=== PATIENT | female | born 1965 | race Caucasian/White ===

== ENCOUNTER 2018-04-20 18:01 | Emergency (ER) | payer SELFPAY ==
[~2018-04-20] VITALS: Ht 160 cm; Wt 109.0 kg
[2018-04-20] MEDS ORDERED: SODIUM CHLORIDE 0.9% 1,000 ML IV ONE (18:27)
[2018-04-20] MEDS ORDERED: INSULIN REGULAR (HUMULIN R) 300UNITS/3ML SUBCUT ONE (18:30)
[2018-04-20 19:45] LABS: BASOPHILS % 0.8 % (0.0-2.0); EOSINOPHILS % 1.1 % (0.0-5.0); HEMATOCRIT. 30.3 % (36.0-48.0); LYMPHOCYTES % 40.7 % (20.0-50.0); MEAN CORPUSCULAR HEMOGLOBIN 25.2 pg (28.0-32.0); MEAN CORPUSCULAR VOLUME 76.3 fL (81.0-99.0); MEAN PLATELET VOLUME 7.7 fl (7.4-10.4); MONOCYTES % 3.1 % (2.0-8.0); NEUTROPHILS % 54.3 % (40.0-76.0); PLATELET 471 x1000/uL (130-400); RED BLOOD CELL COUNT 3.97 mill/uL (4.2-5.4); RED CELL DISTRIBUTION WIDTH 16.1 % (11.6-14.6)
[2018-04-20 19:51] LABS: CHLORIDE 100 mEq/L (98-107)
[2018-04-20 20:00] LABS: BETA HYDROXYBUTYRATE 0.2 mMol/L (0.0-0.3)
[2018-04-20 20:32] LABS: CLARITY URINE CLEAR (CLEAR); COLOR URINE YELLOW (YELLOW); KETONES URINE NEGATIVE (NEGATIVE); LEUKOCYTE ESTERASE URINE TRACE (NEGATIVE); NITRITE URINE NEGATIVE (NEGATIVE); OCCULT BLOOD URINE NEGATIVE (NEGATIVE); PROTEIN URINE NEGATIVE (NEGATIVE); SPECIFIC GRAVITY URINE 1.009 (1.005-1.030); UROBILINOGEN URINE 0.2 E.U./dL (0.2-1.0)
[2018-04-21 00:26] VITALS: BP 118/70
== END 2018-04-21 00:41 | disposition home or self-care (01) ==
LOC: ER 18:01
DX: E11.65 Type 2 diabetes mellitus with hyperglycemia (principal); E78.00 Pure hypercholesterolemia, unspecified; I10 Essential (primary) hypertension; R79.1 Abnormal coagulation profile
CPT/HCPCS: 36415; 71045; 80053; 81003; 81025; 82010; 82962; 83690; 84484; 85025; 85610; 93005; 96360; 96372; 99285; J1815; J7030

== ENCOUNTER 2021-04-11 18:15 | Emergency (ER) | payer OTHER, MEDICAID ==
[~2021-04-11] VITALS: Ht 160 cm; Wt 91.0 kg
[2021-04-11 20:22] LABS: BASOPHILS % 0.6 % (0.0-2.0); EOSINOPHILS % 1.6 % (0.0-5.0); HEMATOCRIT. 34.4 % (36.0-48.0); HEMOGLOBIN. 11.9 g/dL (12.0-16.0); LYMPHOCYTES % 51.6 % (20.0-50.0); MEAN CORPUSCULAR HEMOGLOBIN 31.3 pg (28.0-32.0); MEAN CORPUSCULAR VOLUME 90.1 fL (81.0-99.0); MEAN PLATELET VOLUME 7.5 fl (7.4-10.4); MONOCYTES % 3.8 % (2.0-8.0); NEUTROPHILS % 42.4 % (40.0-76.0); PLATELET 409 x1000/uL (130-400); RED BLOOD CELL COUNT 3.82 mill/uL (4.2-5.4); RED CELL DISTRIBUTION WIDTH 12.7 % (11.6-14.6)
[2021-04-11 20:25] LABS: CHLORIDE 101 mEq/L (98-107)
[2021-04-11] MEDS ORDERED: SODIUM CHLORIDE 0.9% 1,000 ML IV ONE (21:30)
[2021-04-12 01:11] VITALS: BP 138/82
== END 2021-04-12 02:34 | disposition home or self-care (01) ==
LOC: ER 18:15
DX: I10 Essential (primary) hypertension (principal); E11.65 Type 2 diabetes mellitus with hyperglycemia; E11.9 Type 2 diabetes mellitus without complications; E78.00 Pure hypercholesterolemia, unspecified
CPT/HCPCS: 36415; 70450; 80053; 82010; 82962; 84484; 85025; 93005; 96360; 99285; J7030

== ENCOUNTER 2021-11-03 09:14 | Emergency (ER) | payer MEDICAID, OTHER ==
[~2021-11-03] VITALS: Ht 160 cm; Wt 95.0 kg
[2021-11-03 09:28] VITALS: BP 156/75
[2021-11-03] MEDS ORDERED: OXYM30SP26 BOTHNSTRLS (12:22)
[2021-11-03] MEDS ORDERED: BENZ1LOZ60 MT (12:22)
[2021-11-03] MEDS ORDERED: GUAI-453 MT (12:22)
[2021-11-03] MEDS ORDERED: IBUP-2029 MT (12:22)
== END 2021-11-03 12:38 | disposition home or self-care (01) ==
LOC: ER 10:00
DX: J06.9 Acute upper respiratory infection, unspecified (principal); D64.9 Anemia, unspecified; E11.9 Type 2 diabetes mellitus without complications; E78.00 Pure hypercholesterolemia, unspecified; I10 Essential (primary) hypertension; Z20.822 Contact with and (suspected) exposure to COVID-19
CPT/HCPCS: 71045; 87426; 87804; 99284